=== PATIENT | male | born 1950 | race Caucasian/White ===

== ENCOUNTER 2019-03-22 00:37 | Outpatient (CLI) | payer BC, MEDICARE, SELFPAY ==
[2019-03-22] MEDS: Omnipaque 350 MG/ML 100 ML BTL IJ (13:49)
--- NOTE | 2019-03-22 13:55 | DI.CT_ITS ---
EXAM: CT THORAX CTA CLINICAL HISTORY: SEE ECHO, 3.8CM AORTIC DILATATION, DILATED AORTIC ROOT, THORACIC AORTIC ECTASIA, I 77.810 TECHNIQUE: Imaging Protocol: Axial CT angiography was performed with multislice acquisition and mul tiplanar and/or 3D reconstructions. CONTRAST MATERIAL: Intravenous: Omnipaque 350 Contrast volume:100 mL contrast route:IV - Oral:No COMPARISON: No exams were available for comparison FINDINGS: Pulmonary Arteries: No evidence of filling defect to suggest pulmonary emboli. Tracheobronchial tree: Patent where visualized. Mediastinum and Soraya: No dominant adenopathy or fluid collection. Pulmonary parenchyma: No scarring or atelectasis in the lung bases bilaterally. No focal consolidati ng infiltrates are seen. Pleura: No effusion or pneumothorax. Heart/Aorta: Atherosclerosis. Maximum diameter of the ascending aorta is 3.7 centimeters. The heart is not dilated. Coronary artery calcifications. No significant pericardial effusion. Upper abdomen: 3.8 centimeter left renal cyst. Bones: Degenerative changes in the spine IMPRESSION: Ascending thoracic aorta measuring up to 3.7 centimeters in diameter. DATA REPOSITORY: All CT scans at this facility are submitted to the National Radiology Data Registry (NRDR) Dose Index Registry (DIR) with the [employer] (A[employer]). RADIATION OPTIMIZATION: All CT scans at this facility use at least one of these dose optimization te chniques: automated exposure control; mA and/or kV adjustment per patient size (includes targeted exa ms where dose is matched to clinical indication); or iterative reconstruction.
== END 2019-03-22 00:57 ==
PROVIDERS: PCP Family Medicine; Visit Provider Family Medicine
DX: I77.810 Thoracic aortic ectasia (principal)
CPT/HCPCS: 71275; J3490

== ENCOUNTER 2019-04-02 09:06 | Day surgery (SDC) | payer BC, MEDICARE, SELFPAY ==
--- NOTE | 2019-04-02 06:51 | ENDO_ITS ---
Date of service: 04/02/19 Time of Service: 10:55 Endoscopy Report DATE OF PROCEDURE: 04/02/19 PRE-OP DIAGNOSIS: Dysphagia POST-OP DIAGNOSIS: other (Erosive esophagitis, gastritis) PROCEDURE: EGD with biopsies SURGEON: Veronique Fletcher ANESTHESIA: other (General/ ASA 2/Lilo Vicente, PATTIE) ESTIMATED BLOOD LOSS: 3 PATHOLOGY: other (Gastric bx, GE junction bx, esophageal bx at 35 cm) COMPLICATIONS: None DISPOSITION: same day INDICATIONS: Mr. Raygoza is a pleasant 68-year-old gentleman with a history of reflux on ranitidine daily who comes in today to discuss a possible upper endoscopy. He has had symptoms of dysphasia on and off for about 20 years. He states he normally feels it when he is eating too fast or if he is eating something very spicy. He is never had an upper endoscopy before. He denies any weight loss, nausea, vomiting. His past medical history is significant for an MN in September 2017. At that time he had 2 stents placed. He sees cardiology regularly in [place] and his last echocardiogram was December of this year and per the patient was stable. He did have a CT scan done here at [facility] which showed a dilated a sending aorta at 3.8 cm stable from the echo. He has not had to use his nitro for a long time. He does also have COPD. Current symptoms: Reports dysphagia Prior treatment: H2 blockers Risks, benefits and complications have been reviewed. Complications include but are not limited to bleeding, pain, perforation, sore throat, aspiration, and adverse reaction to the medications. Questions were entertained and answered to their satisfaction and they wished to proceed. No guarantees were given or implied. FINDINGS: Mild to moderate gastritis Erosive esophagitis PROCEDURE DESCRIPTION: After informed consent was obtained the patient was take to the procedure room and placed in a supine position. Monitors were applied and a time out was done. The patients name, date of , procedure type, allergies to medications and metal in their body was reviewed. A bite block was placed and the patient was sedated. Once sedated and comfortable the gastroscope was advanced through the oropharynx which was grossly normal into the esophagus. The proximal and mid- esophagus were normal. In the distal esophagus there was inflammation and denudation of esophageal mucosa from 40 to 35 cm noted. The scope was advanced into the stomach and through the pylorus into the 3rd portion of the duodenum. The duodenum was noted to be normal. The scope was retracted back into the stomach. There was mild to moderate gastritis of the antrum and body and biopsies were done to rule out H. pylori. There were no ulcers. The scope was retro-flexed. The cardia and fundus were noted to be normal. There was no hiatal hernia noted. The scope was retracted back into the esophagus. The Z line was irregular with inflammation. The GE junction was at 40 cm. There were areas that looked like the mucosa was denuded from 40 up to 35 cm. It was in strips. Bx were done at the GE junction and at 35 cm. No masses were noted. There was normal appearing peristalsis while I was doing the EGD. The scope was removed and the patient was woken up and taken back to [facility] in stable condition. Follow up: 3 weeks. Start Omeprazole 40 mg daily. Stop Ranitidine.
--- NOTE | 2019-04-02 06:53 | W.PM.DSUDISC ---
Discharge Plan Disposition Patient Disposition: HOME Condition: Good Discharge Details Reason For Visit: Dysphagia Attending Provider: Veronique Fletcher Primary Care Provider: Jesusita Ruiz Home Meds and New Rx's Prescriptions: New omeprazole 40 mg capsule,delayed release(DR/EC) 40 mg PO DAILY Qty: 30 RF: 1 Continued atorvastatin 80 mg tablet 80 mg PO DAILY Qty: 90 RF: 11 Januvia 100 mg tablet 100 mg PO DAILY Qty: 90 RF: 12 metformin [Glucophage] 1,000 mg tablet See Rx Instructions PO BID RF: 0 metoprolol succinate 25 mg tablet extended release 24 hr 25 mg PO DAILY Qty: 90 RF: 5 Jardiance 10 mg tablet 10 mg PO QAM Qty: 90 RF: 4 aspirin [Adult Aspirin Regimen] 81 mg tablet,delayed release (DR/EC) 81 mg PO DAILY RF: 0 cetirizine 10 MG tablet 1 tab PO BID RF: 0 (DME) lancets [OneTouch Delica Lancets] 1 EACH misc 1 unit Sub-Q DAILY RF: 0 (DME) lancets 1 EACH misc 1 unit Intradermal DAILY RF: 0 epinephrine [EpiPen 2-Justice] 0.3 MG/0.3 ML auto-injector 0.3 mg IM PRN Qty: 2 RF: 12 multivitamin [Daily Multiple] 1 EACH tablet 1 tab PO DAILY RF: 0 cholecalciferol (vitamin D3) [Vitamin D3] 2,000 UNIT capsule 2,000 unit PO DAILY RF: 0 albuterol sulfate [ProAir HFA] 8.5 GM HFA aerosol inhaler 1 - 2 puff Inhalation Q4H PRN Qty: 3 RF: 12 nitroglycerin 0.4 MG tablet, sublingual 0.4 mg Sublingual PRN MDD 3 Qty: 25 RF: 11 chlorthalidone 25 mg tablet 25 mg PO DAILY Qty: 90 RF: 12 potassium chloride 20 mEq tablet extended release 20 meq PO DAILY Qty: 90 RF: 12 (DME) HealthLok Ultra Test strip 1 strip Miscellaneous DAILY Qty: 100 RF: 12 Incruse Ellipta 62.5 mcg/actuation blister with device 1 inh IH DAILY Qty: 90 RF: 4 Discontinued ranitidine HCl [Zantac Maximum Strength] 150 mg tablet 150 mg PO BID Qty: 180 RF: 4 Discharge Instructions Additional Instructions: Findings: Gastritis and esophagitis Follow up: 3 weeks in the office Medication: Stop Ranitidine Start Omeprazole Please call if you develop: fevers >101.5 Nausea or Vomiting Abdominal pain that is not transient DAY SURGERY UNIT POST ENDOSCOPY INSTRUCTIONS 1. Because there will be medication in your system for the next 24 hours, you may feel a little sleepy. Your coordination will be affected. Therefore: a. Do not drive or operate dangerous equipment for 24 hours. b. Do not drink alcohol beverages for 24 hours (not even beer). c. Plan to go home and rest for the day. 2. Generally there are no restrictions on your activity after a day or so has gone by, but you may feel a bit fatigued for a few days. 3 After you arrive home you may have a light meal and return to a normal diet as you can tolerate it without feeling sick to your stomach. 4. After surgery, you may feel pain or discomfort. This should be only transient, but if it persists please contact your doctor. 5. If there are any questions regarding the findings of your procedure, please feel free to contact your doctor. 6. If you are unable to contact your doctor with a problem, contact the hospital at [phone]. 7. Continue all your regular medications unless directed otherwise. I understand the above instructions and have no questions. Signature of Patient or Responsible Adult Escort Date/Time Name of Responsible Adult Escort Signature of Nurse Date/Time Referrals: Veronique Fletcher MD [ [facility] STAFF PHYSICIAN] - 04/20/19 9:00 am Activity:: Activity as Tolerated Diet:: As Tolerated Discharge Orders Discharge Orders: Discharge Order (Routine); Ordered 04/02/19 Ordered By: Veronique Fletcher DS: Diagnosis Discharge Diagnosis (1) Gastritis: Status: Acute (2) Esophagitis determined by endoscopy: Status: Acute
[2019-04-02 09:24] VITALS: BP 126/84; PULSE 83; RESP 16; TEMP 36.7; O2SAT 92
[2019-04-02] MEDS: Lactated Ringers 1,000 ML 80 ML IV (09:56)
--- NOTE | 2019-04-02 10:44 | STOM_PTH ---
PATIENT: Phillip Raygoza LOC: [facility] U#:[id number] AGE/SX: 68/M ROOM: RE04/02/[address]: Veronique Fletcher MD : [id number] BED: DIS: 04/02/2019 SPEC #: [id number] RECD: 04/02/19 12:49 STATUS: JOE REQ #: [id number] CONSTANZA: 04/02/19 10:[address]: Veronique Fletcher DEPT: Surgical Specimen RECD BY: Marilin Pimentel ENTERED: 04/02/19 12:50 SP TYPE: STOMACH OTHR DR: Jesusita Ruiz MD, DC Tissues: 1 - STOMACH BIOPSY 2 - ESOPHAGUS BIOPSY 3 - ESOPHAGUS BIOPSY Procedures: GROSS AND MICRO LEVEL 4 Comments: [id number]
[2019-04-02 11:31] VITALS: BP 128/81; PULSE 80; RESP 16; TEMP 36.7; O2SAT 92
== END 2019-04-02 11:40 | disposition home or self-care (01) ==
LOC: SUR 09:06
PROVIDERS: PCP Family Medicine; Visit Provider Surgery
PROC: 0DJ68ZZ Inspection of Stomach, Via Natural or Artificial Opening Endoscopic (ICD-10-PCS; CPT 43235; principal; 2019-04-02 10:30)
DX: R13.10 Dysphagia, unspecified (principal); K21.0 Gastro-esophageal reflux disease with esophagitis; K22.9 Disease of esophagus, unspecified; K29.70 Gastritis, unspecified, without bleeding; E11.9 Type 2 diabetes mellitus without complications; Z79.84 Long term (current) use of oral hypoglycemic drugs; J44.9 Chronic obstructive pulmonary disease, unspecified
CPT/HCPCS: 43239; 88305; J2001; J2704

== ENCOUNTER 2020-03-25 18:36 | Emergency (ER) | payer BC, MEDICARE, SELFPAY ==
[2020-03-25 18:43] VITALS: PULSE 95; RESP 16; TEMP 36.9; O2SAT 95
--- NOTE | 2020-03-25 18:54 | ED.GENADUL_ITS ---
Discharge Plan Disposition Patient Disposition: HOME Condition: Stable Discharge Details Clinical Impression: Renal cyst, Hemorrhoids, BRBPR (bright red blood per rectum), Abdominal discomfort Primary Care Provider: Jesusita Ruiz ED Provider: Lenore Darling Home Meds and New Rx's Prescriptions: Continued prednisone 20 mg tablet 40 mg PO DAILY PRN (Reason: Allergy Symptoms) RF: 0 famotidine 40 mg tablet 40 mg PO BID Qty: 180 RF: 6 polyethylene glycol 3350 17 gram/dose powder 17 gm PO DAILY PRN (Reason: constipation) Qty: 510 RF: 5 (DME) pen needle, diabetic [BD Ultra-Fine Short Pen Needle] 31 gauge x 5/16 needle See Rx Instructions .ROUTE .MEDSUPPLY Qty: 90 RF: 6 (DME) blood sugar diagnostic Strip 1 strip Miscellaneous DAILY Qty: 400 RF: 12 aspirin [Adult Aspirin Regimen] 81 mg tablet,delayed release (DR/EC) 81 mg PO DAILY RF: 0 Januvia 100 mg tablet 100 mg PO DAILY Qty: 90 RF: 12 potassium chloride 20 mEq tablet extended release 20 meq PO DAILY Qty: 90 RF: 12 chlorthalidone 25 mg tablet 25 mg PO DAILY Qty: 90 RF: 12 atorvastatin 80 mg tablet 80 mg PO DAILY Qty: 90 RF: 11 cetirizine 10 MG tablet 1 tab PO BID RF: 0 (DME) lancets [OneTouch Delica Lancets] 1 EACH misc 1 unit Sub-Q DAILY RF: 0 (DME) lancets 1 EACH misc 1 unit Intradermal DAILY RF: 0 multivitamin [Daily Multiple] 1 EACH tablet 1 tab PO DAILY RF: 0 cholecalciferol (vitamin D3) [Vitamin D3] 2,000 UNIT capsule 2,000 unit PO DAILY RF: 0 albuterol sulfate [ProAir HFA] 8.5 GM HFA aerosol inhaler 1 - 2 puff Inhalation Q4H PRN Qty: 3 RF: 12 nitroglycerin 0.4 MG tablet, sublingual 0.4 mg Sublingual PRN MDD 3 Qty: 25 RF: 11 empagliflozin 25 mg tablet 25 mg PO QAM Qty: 90 RF: 4 metformin [Glucophage] 1,000 mg tablet See Rx Instructions PO BID Qty: 225 RF: 6 Lantus Solostar U-100 Insulin 100 unit/mL (3 mL) insulin pen 28 unit SC DAILY Qty: 45 RF: 6 metoprolol succinate 25 mg tablet extended release 24 hr 25 mg PO DAILY Qty: 90 RF: 5 Incruse Ellipta 62.5 mcg/actuation blister with device 1 inh IH DAILY Qty: 90 RF: 4 fluticasone propion-salmeterol [Advair Diskus] 500-50 mcg/dose blister with device 1 inh inhalation BID Qty: 180 RF: 5 epinephrine [EpiPen 2-Justice] 0.3 mg/0.3 mL auto-injector 0.3 mg IM PRN Qty: 2 RF: 0 Discharge Instructions Instructions: Hemorrhoids (ED) Additional Instructions: Your imaging and labs are reassuring today. You were noted to have a renal cyst as we discussed. You have bleeding noted from your rectum, this is likely associate with hemorrhoid that was visualized on exam. Encourage water intake. Please try to keep your stools soft but not overly frequent abdominal you avoid both straining and excessive wiping to allow this area to heal. The bleeding is likely coming from your hemorrhoid. I would like for you to follow-up with general surgery. Please call number listed below the month schedule follow-up appointment. YOu will need follow up of your renal cyst in 6 months from primary care. Please also contact your primary care tomorrow to schedule follow-up appointment in the next 1 to 2 weeks for reevaluation and discuss your chronic abdominal discomfort. Referrals: Jesusita Ruiz MD, [place] [Primary Care Provider] - Suzanne Nash MD [ [facility] STAFF PHYSICIAN] - Discharge Data Discharge Date/Time-TO BE ENTERED AT DEPARTURE: 03/25/20 23:19 Medical Decision Making Patient is a pleasant 69 year old male with PMH sgnificant for DM, BPH, COPD, diverticulitis, esophagitis, HTN, gastritis, hemorrhoids, IA, TIA. [facility] with c/c of abdominal discomfort and BRBPR. He state sthtat he has chronic abdoinal pain that has been rpresent for several years. He has had endoscopy which revealed esophagitis as well as colonoscopy which was without abnormality. He states that he noted some heaviness in his lower abdomen which is new today. Abdominal pain otherwise chronic. He states that he had one episode of nausea/vomiting after eating [place] food a few days ago but none since then. Reports that today he noted bright red blood in the toilet. Denies this being intermixed with stool. States it was a few drops after his BM in the toilet. States he later noted blood in his underwear. No change in urinary habits. No bleeding elsewhere. Hx of hemohrroids. On exam, patient appears slightly anxious but nontoxic. He has a benign abdomen. Lungs are clear. He has small amount of bright red blood around his rectum as well as a nonthrombosed hemorrhoid. Nomral rectal tone. He states that he has chronic SOB and occasional CP. Will obtain ECG and troponin although ACS is very low on differential. History and exam is most suggestive of bleeding hemorrhoid. I did not see any active bleeding. Hehas a benign abdomen but indicates the entirety of the lower abdomen as his source of heaviness. considered diverticulits as well. Also considered appendicitis although this too seems less likely. will obtain CT and labs. ECG reviewed by physician, no acute ischemic changes noted. Labs reviewed, no acute changes noted. roponin <0.05. I do not feel repeat is necessary based on longevity of symptos. FINDINGS: Liver: Normal. No mass. Gallbladder and bile ducts: Normal. No calcified stones. No ductal dilation. Pancreas: Normal. No ductal dilation. Spleen: Normal. No splenomegaly. Adrenal glands: Normal. No mass. Kidneys and ureters: Mildly complex left renal cyst. Stomach and bowel: Scattered colonic diverticula. Appendix: No evidence of appendicitis. Intraperitoneal space: Unremarkable. No free air. No significant fluid collection. Vasculature: Unremarkable. No abdominal aortic aneurysm. Lymph nodes: Unremarkable. No enlarged lymph nodes. Urinary bladder: Question minimal mural thickening of the incompletely distended urinary bladder, recommend clinical exclusion of urinary cystitis. Reproductive: Unremarkable as visualized. Bones/joints: Unremarkable. No acute fracture. Soft tissues: Unremarkable. IMPRESSION: 1. No acute finding. 2. Question minimal mural thickening of the incompletely distended urinary bladder, recommend clinical exclusion of urinary cystitis. 3. Mildly complex left renal cyst. Recommend CT without and with contrast or MR without and with contrast at 6 months and 12 months, then yearly for 5 years. Discussed this finding wit the aptetient. Will obtain UA. Denies dysurea, frequency or urgency. No CVA tenderness. He will f/u with PCP regarding cyst and repeat imaging. He and I discussed care of his hemorrhoid. He is not anemic, has been stable while here, no evidence of signficant blood loss. We discussed disposition, patient will be d/c'ed home with PCP and general surgery f/u. We did discuss his chronic abdominal pain further, discussed if this is linked to stress. It may be. He was given return precautions. UA without evidence of infection. Glucose noted, this is likely medication driven. All of his quetion and cncerns were addressed, he is in agreement with this plan. HPI General Mode of arrival: ambulatory . Date/Time Provider Initiated Documentation: 03/25/20 18:54 . Limitations to Documentation: no limitations . Information obtained by: patient, RN notes reviewed and old records reviewed . History of Present Illness 69 year old M presents to the emergency department with the chief complaint of abdominal discomfort and rectal bleeding, described as moderate and similar to prior episodes (chronic abdominal discomfort and heartburn, rectal bleeding is new. Hx of hemorrhoids), with intensity rated at 6. Quality is described as aching, and is localized to the abdomen. Patient reports no radiation. Patient started experiencing this hour(s) (BRBPR began today. Abdominal discomfort for years, changed recently) and it has been constant. No relieving factors improve symptom(s), No exacerbating factors reported . Patient notes weakness; denies chest pain, cough, fever/chills, loss of appetite, nausea/vomiting, rash and shortness of breath. Patient did receive the following treatments prior to arrival, none Related Data Home Medications Medication Instructions Recorded Confirmed cetirizine 1 tab PO BID 07/25/12 03/25/20 lancets ea 07/25/12 11/13/19 lancets [OneTouch Delica Lancets] ea 07/25/12 11/13/19 cholecalciferol (vitamin D3) 2,000 unit PO DAILY 09/24/14 03/25/20 [Vitamin D3] multivitamin [Daily Multiple] 1 tab PO DAILY 09/24/14 03/25/20 albuterol sulfate [ProAir HFA] 1 - 2 puff INHALATION Q4H PRN #3 05/12/15 03/25/20 inhaler nitroglycerin 0.4 mg SUBLINGUAL PRN #25 tab-cap 10/04/17 03/25/20 MDD 3 aspirin 81 mg tablet,delayed 81 mg PO DAILY 03/27/19 03/25/20 release atorvastatin 80 mg tablet 80 mg PO DAILY #90 tab-cap 04/05/19 03/25/20 chlorthalidone 25 mg tablet 25 mg PO DAILY #90 tab 04/05/19 03/25/20 potassium chloride 20 mEq 20 meq PO DAILY #90 tab 04/05/19 03/25/20 tablet,extended release sitagliptin 100 mg tablet 100 mg PO DAILY #90 tab-cap 04/05/19 03/25/20 empagliflozin 25 mg tablet 25 mg PO QAM #90 tab 06/19/19 03/25/20 metformin 1,000 mg tablet See Rx Instructions PO BID #225 tab 06/19/19 03/25/20 blood sugar diagnostic #400 strip 07/26/19 11/13/19 famotidine 40 mg tablet 40 mg PO BID #180 tab 07/26/19 03/25/20 pen needle, diabetic 31 gauge x #90 each 07/26/19 11/13/19/ polyethylene glycol 3350 17 17 gm PO DAILY PRN #510 gm 07/26/19 03/25/20 gram/dose oral powder insulin glargine 100 unit/mL (3 28 unit SC DAILY #45 ml 10/09/19 03/25/20 mL) subcutaneous pen prednisone 20 mg tablet 40 mg PO DAILY PRN tab 11/13/19 03/25/20 metoprolol succinate 25 mg 25 mg PO DAILY #90 tab 12/04/19 03/25/20 tablet,extended release 24 hr umeclidinium 62.5 mcg/actuation 1 inh IH DAILY #90 each 12/04/19 03/25/20 blister powder for inhalation fluticasone 500 mcg-salmeterol 50 1 inh INHALATION BID #180 ea 12/23/19 03/25/20 mcg/dose blistr powdr for inhalation epinephrine 0.3 mg/0.3 mL 0.3 mg IM PRN #2 ea 03/17/20 03/25/20 injection, auto-injector Previous Rx's Medication Instructions Recorded nitroglycerin 0.4 mg SUBLINGUAL PRN #25 tab-cap 10/04/17 MDD 3 atorvastatin 80 mg tablet 80 mg PO DAILY #90 tab-cap 04/05/19 chlorthalidone 25 mg tablet 25 mg PO DAILY #90 tab 04/05/19 potassium chloride 20 mEq 20 meq PO DAILY #90 tab 04/05/19 tablet,extended release sitagliptin 100 mg tablet 100 mg PO DAILY #90 tab-cap 04/05/19 empagliflozin 25 mg tablet 25 mg PO QAM #90 tab 06/19/19 metformin 1,000 mg tablet See Rx Instructions PO BID #225 tab 06/19/19 blood sugar diagnostic #400 strip 07/26/19 famotidine 40 mg tablet 40 mg PO BID #180 tab 07/26/19 pen needle, diabetic 31 gauge x #90 each 07/26/1908/10 polyethylene glycol 3350 17 17 gm PO DAILY PRN #510 gm 07/26/19 gram/dose oral powder insulin glargine 100 unit/mL (3 28 unit SC DAILY #45 ml 10/09/19 mL) subcutaneous pen metoprolol succinate 25 mg 25 mg PO DAILY #90 tab 12/04/19 tablet,extended release 24 hr umeclidinium 62.5 mcg/actuation 1 inh IH DAILY #90 each 12/04/19 blister powder for inhalation fluticasone 500 mcg-salmeterol 50 1 inh INHALATION BID #180 ea 12/23/19 mcg/dose blistr powdr for inhalation epinephrine 0.3 mg/0.3 mL 0.3 mg IM PRN #2 ea 03/17/20 injection, auto-injector Allergies Allergy/AdvReac Type Severity Reaction Status Date / Time lisinopril Allergy Intermediate SWELLING Unverified 03/25/20 18:48 General Stated Complaint: GI Bleed FERNY: 3 Review of Systems Constitutional Constitutional: Reports as per HPI, Denies chills, Denies fatigue, Denies fever(s) and Denies headache(s) ENT Ears, Nose, Mouth, and Throat: Denies headache(s) Cardiovascular Cardiovascular: Reports as per HPI, Denies chest pain and Denies dyspnea Respiratory Respiratory: Reports as per HPI, Denies cough and Denies dyspnea Gastrointestinal Gastrointestinal: Reports as per HPI Genitourinary Genitourinary: Denies system reviewed and no additional complaints, except as documented (patient denies any change in urinary habits), Denies hematuria, Denies genital pain and Denies dysuria Musculoskeletal Musculoskeletal: Reports as per HPI and Denies back pain Integumentary/Breasts Skin/Breast: Reports as per HPI and Denies rash Neurologic Neurologic: Reports as per HPI and Denies headache(s) Endocrine Endocrine: Denies fatigue [facility] Medical History (Updated 03/25/20 @ 22:59 by TYRON Anthony) Benign prostatic hyperplasia normal PSA Chest pain negative stress test and neg. 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 MRI of brain neg. Diverticulosis of colon without diverticulitis DM (diabetes mellitus) Elev transaminase/LDH Esophagitis determined by endoscopy mild Essential hypertension (03/16/13) Gastritis negative H. Pylori Hemorrhoids Hypokalemia (01/21/14) Low back pain (02/24/95) 1995 BACK INJURY, DISABLED, L4-5 DISK HERNIATION Major depression, single episode DAUGHTER COMMITED SUICIDE; PSYCHE ADMISS[place] [facility] [place] Memory difficulty (01/09/15) Myocardial infarct September 2017 Neck pain (09/24/14) Shoulder pain RECURRENT RIGHT Smoker Transient cerebral ischemia (07/21/17) Tubular adenoma 07/04 COLONOSCOPY: TUBULAR ADENOMA 10/27/11 COLONOSCOPY; 1 TUBULAR ADENOMA Type 2 diabetes mellitus Urticaria Chronic; W/U at [facility] [place] 2006; recommended antihistamines and epi if necessary Vitamin D deficiency (05/02/12) Surgical History Colonoscopy - MAC (09/09/17) 2008- Tubular adenoma 2011- Tubular adenoma Stented coronary artery 2 stents placed 09/2017 Family History Mother , 86 Diabetes Essential hypertension CHF (congestive heart failure) Father , 95 Diabetes Essential hypertension Heart disease Myocardial infarction Brother No problems noted. Son No problems noted. Son Asthma Daughter , 19 No problems noted. Maternal Grandfather , 65 No problems noted. Paternal Grandfather No problems noted. Maternal Grandmother , 84 No problems noted. Paternal Grandmother No problems noted. Social History Smoking/Tobacco Use Status: Former Tobacco Use Second Hand Exposure: Yes Smoking risk assessment performed?: Yes Alcohol Intake: current Alcohol Intake frequency: a few times a month Alcohol type: hard liquor Drug use: Never Substance use type: does not use Household members: spouse Housing: house Communication Needs: Corrective Lenses Pets and animals: No Sexually active: Yes Do you think of yourself as: straight/heterosexual Current gender identity: male What is your relationship status?: How often do you talk on the phone with friends or family?: three or more times per week How often do you get together with friends or relatives?: twice per week How often do you attend rastafarian or mandaen services?: decline to answer Do you belong to any clubs or organized social groups?: decline to answer Panel score (0-1 are the most socially isolated patients): 2 What type of physical activity do you participate in: walking Duration: 30-45 minutes/day Frequency: 5-6 times per week Magi/Shinto: Special magi needs: No Seatbelt use: always Helmet use: No Drive intox or ride w/intox sprinkler driver: No Do you feel safe at home: Yes Do you feel safe in your relationship?: Yes Exam Const General: cooperative, healthy appearing, comfortable, no acute distress and well developed Nutritional Appearance: average body habitus and well nourished Orientation: alert and awake HENMT Head: normal to inspection Mouth: moist mucous membranes Resp Effort & Inspection: normal respiratory effort, able to speak in complete sentences and no respiratory distress Auscultation: clear to auscultation bilaterally, no rales, no rhonchi and no wheezes Cardio Rate: regular rate Rhythm: regular rhythm Heart Sounds: S1 normal and S2 normal GI Inspection: normal to inspection, no abdominal wall ecchymosis, non-distended and no visible herniation Palpation: soft, no hepatosplenomegaly, no guarding, no hernias, no pulsatile masses, nontender and No ascites Percussion: normal to percussion Auscultation: normal bowel sounds Rectal Exam: visual inspection normal (hemorrhoid noted, small amount of blood ), normal sphincter tone, prostate normal, heme positive stool (BRBPR) and No tenderness Back/Spine/Pelvis Back: no CVA tenderness Skin General skin exam: no rashes or lesions noted Trauma: no lacerations or abrasions Neuro General: patient alert and patient awake Cognition: normal cognition Speech: speech normal Gait: normal gait Psych Appearance: grossly normal and well kempt Mental Status: mental status grossly normal Speech and Movement: speech and movement normal Course Vital Signs Vital signs: Vital Signs Temperature 36.9 C 03/25/20 18:43 Pulse 95 H 03/25/20 18:43 Respiratory Rate 16 03/25/20 18:43 Pulse Oximetry 95 03/25/20 18:43 Temperature 36.9 C 03/25/20 18:43 Temperature Source Skin 03/25/20 18:43 Pulse 95 H 03/25/20 18:43 Respiratory Rate 16 03/25/20 18:43 Respiratory Effort Non-Labored 03/25/20 18:47 Blood Pressure Position Sitting 03/25/20 18:43 Pulse Oximetry 95 03/25/20 18:43 Oxygen Delivery Method Room Air 03/25/20 18:43 Oxygen Flow Rate 0 03/25/20 18:43 Pain Level 6 03/25/20 18:47
--- NOTE | 2020-03-25 19:15 | DI.CT_ITS ---
EXAM: CT ABDOMEN PELVIS W CLINICAL HISTORY: lower abdominal pain, BRBPR TECHNIQUE: COMPARISON: CT CT THORAX CTA from 03/22/2019 FINDINGS: CT examination of the abdomen and pelvis was performed with bolus infusion of 100 cc of Omnipaque 350 . Images obtained through the lung bases are unremarkable. Note is made of coronary artery calcifica tion. The liver appears normal with no evidence of a focal mass. Spleen is unremarkable in appearance.. Gallbladder and bile ducts are unremarkable. Pancreas is unremarkable in appearance. Adrenals appear normal bilaterally. There is no evidence of hydronephrosis or nephrolithiasis. There is an apparent pelvic cyst of the l eft kidney, there is also a 4 cm in diameter predominantly cystic lesion of the left renal cortex sup eriorly, this appears to contain internal septations of indeterminate thickness, correlation with benjamin al protocol MR suggested for characterisation. There is no evidence of abdominal or pelvic adenopathy. Abdominal aorta is of normal diameter and no major vascular abnormality is seen. Appendix is not specifically identified but there is no evidence of appendicitis.. No evidence diver ticulitis or bowel obstruction. No significant abdominal wall hernia seen. Impression: No evidence of acute process. There is an incidental finding of an indeterminate left renal mass, pr obably predominantly cystic. Correlation with renal protocol MRI recommended. RADIATION DOSE DELIVERED: 992.3mGy.cm Total DLP 992.3mGy.cm Total DLP DATA REPOSITORY: All CT scans at this facility are submitted to the National Radiology Data Registry (NRDR) Dose Index Registry (DIR) with the [employer] ([employer]). RADIATION OPTIMIZATION: All CT scans at this facility use at least one of these dose optimization te chniques: automated exposure control; mA and/or kV adjustment per patient size (includes targeted exa ms where dose is matched to clinical indication); or iterative reconstruction.
--- NOTE | 2020-03-25 19:15 | RT.EKG_ITS ---
APPROVED REPORT Exam: Resting ECG Patient Location: E HR:85 bpm ECG Measurements Heart Rate 85 AXIS FL 179 P 56 QRSd 95 QRS -31 QT 381 T 60 QTc 453 Conclusion Sinus rhythm...normal P axis, V-rate 60- 99 Left axis deviation...QRS axis (-30,-90) I have reviewed and interpreted ECG and agree with software generated interpretation.
[2020-03-25 19:32] LABS: Abs Immature Grans 0.09 10^3/uL (0.0-0.06); Absolute Basophil Count 0.02 10^3/uL (0.0-0.2); Absolute Eosinophil Count 0.27 10^3/uL (0.0-0.7); Absolute Lymphocyte Count 1.36 10^3/uL (1.2-3.4); Absolute Monocyte Count 1.32 10^3/uL (0.1-0.8); Absolute Neutrophil Count 6.26 10^3/uL (1.2-6.7); Basophils % 0.2; Eosinophils % 2.9; HCT 47.9 % (40.0-50.0); HGB 17.2 g/dL (13.5-17.5); Lymphocytes % 14.6; MCH 32.8 pg (27.0-33.0); MCHC 35.9 % (32.0-36.0); MCV 91.4 fL (80-95); MPV 9.5 fL (8.0-11.0); Monocytes % 14.2; Neutrophils % 67.1; Nucleated RBC 0 %; Platelet Count 288 10^3/uL (130-400); RBC 5.24 10^6/uL (4.36-5.78); RDW 12.1 % (11.8-14.1); RDW-SD 40.1 fL; WBC 9.32 10^3/uL (4.4-10.8)
[2020-03-25 19:48] LABS: ALT 34 U/L (16-63); AST 21 U/L (15-37); Albumin 4.3 g/dL (3.4-5.0); Alkaline Phosphatase 126 U/L (46-116); Anion Gap 8.2 mmol/L (3-11); BUN 20 mg/dL (7-18); Bilirubin, Total 0.7 mg/dL (0.2-1.0); CO2 30.8 mmol/L (21.0-32.0); CREATININE 0.92 mg/dL (0.70-1.30); Calcium 9.9 mg/dL (8.5-10.1); Chloride 99 mmol/L (98-107); Glucose 128 mg/dL (74-106); Lipase 84 U/L (73-393); Magnesium 1.8 mg/dL (1.8-2.4); Potassium 3.5 mmol/L (3.5-5.1); Sodium 138 mmol/L (136-145); Total Protein 8.3 g/dL (6.4-8.2)
[2020-03-25] MEDS: Normal Saline 1,000 ML 125 ML IV (19:50)
[2020-03-25 19:58] LABS: Troponin I < 0.05 ng/mL (<0.06)
[2020-03-25] MEDS: Omnipaque 350 MG/ML 100 ML BTL IV (21:32)
[2020-03-25] MEDS: Normal Saline - Diluent 50 ML VIAL IV (21:33)
[2020-03-25] MEDS: Normal Saline Flush 10 ML SYR IVP (21:34)
[2020-03-25 21:36] VITALS: BP 136/69; PULSE 80; O2SAT 95
[2020-03-25 22:00] VITALS: PULSE 89; O2SAT 96
--- NOTE | 2020-03-25 22:00 | DI.VRAD_ITS ---
PROCEDURE INFORMATION: Exam: CT Abdomen And Pelvis With Contrast Exam date and time: 03/25/2020 9:28 PM Age: 69 years old Clinical indication: Other: Lower abdominal pain, brbpr TECHNIQUE: Imaging protocol: Computed tomography of the abdomen and pelvis with intravenous contrast. Radiation optimization: All CT scans at this facility use at least one of these dose optimization techniques: automated exposure control; mA and/or kV adjustment per patient size (includes targeted exams where dose is matched to clinical indication); or iterative reconstruction. Contrast material: OMNIPAQUE 350; Contrast volume: 100 ml; Contrast route: INTRAVENOUS (IV); Other contrast: lower abdominal pain, brbpr; COMPARISON: US AAA SCREENING 07/26/2017 11:44 AM FINDINGS: Liver: Normal. No mass. Gallbladder and bile ducts: Normal. No calcified stones. No ductal dilation. Pancreas: Normal. No ductal dilation. Spleen: Normal. No splenomegaly. Adrenal glands: Normal. No mass. Kidneys and ureters: Mildly complex left renal cyst. Stomach and bowel: Scattered colonic diverticula. Appendix: No evidence of appendicitis. Intraperitoneal space: Unremarkable. No free air. No significant fluid collection. Vasculature: Unremarkable. No abdominal aortic aneurysm. Lymph nodes: Unremarkable. No enlarged lymph nodes. Urinary bladder: Question minimal mural thickening of the incompletely distended urinary bladder, recommend clinical exclusion of urinary cystitis. Reproductive: Unremarkable as visualized. Bones/joints: Unremarkable. No acute fracture. Soft tissues: Unremarkable. IMPRESSION: 1. No acute finding. 2. Question minimal mural thickening of the incompletely distended urinary bladder, recommend clinical exclusion of urinary cystitis. 3. Mildly complex left renal cyst. Recommend CT without and with contrast or MR without and with contrast at 6 months and 12 months, then yearly for 5 years. Dictated and Authenticated by: Abundio Gray MD. Ordering:JULIO C Grover MD
[2020-03-25 22:02] VITALS: BP 159/87; PULSE 83; O2SAT 96
[2020-03-25 22:25] LABS: Bilirubin Negative (Negative); Blood Negative (Negative); Clarity Clear (Clear); Glucose >=1000 mg/dL (Negative); Ketones Trace mg/dL (Negative); Leukocyte Esterase Negative (Negative); Nitrite Negative (Negative); Urobilinogen 0.2 EU/dL (Up TO 0.2)
[2020-03-25 22:30] VITALS: O2SAT 96
[2020-03-25 23:09] VITALS: O2SAT 93
--- NOTE | 2020-03-25 23:16 | NUR.NOTE ---
Referral sent to General surgery for follow up on BRBPR. [facility] ED Nursing Note:
== END 2020-03-25 23:19 | disposition home or self-care (01) ==
PROVIDERS: Emergency Provider Physician Assistant; PCP Family Medicine
DX: N28.1 Cyst of kidney, acquired (principal); K62.5 Hemorrhage of anus and rectum; K64.4 Residual hemorrhoidal skin tags; E11.9 Type 2 diabetes mellitus without complications; Z79.4 Long term (current) use of insulin; I10 Essential (primary) hypertension; J44.9 Chronic obstructive pulmonary disease, unspecified; Z87.891 Personal history of nicotine dependence
CPT/HCPCS: 36415; 80053; 83690; 93005; 96360; 96361; 99285; 74177; 81003; 83735; 84484; 85025; 93010; J3490

== ENCOUNTER 2020-04-10 01:46 | Outpatient (CLI) | payer BC, MEDICARE, SELFPAY ==
--- NOTE | 2020-04-10 06:45 | DI.RAD_ITS ---
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 No forei gn body identified. Unremarkable examination of the orbits. Paranasal sinuses appear grossly well a erated as visualized. IMPRESSION: RADIATION DOSE DELIVERED: Total DLP
--- NOTE | 2020-04-10 06:45 | DI.MRI_ITS ---
EXAM: MR ABDOMEN WO/W CLINICAL HISTORY: abnl renal mass,RENAL CYST,N28.1,R93.429. TECHNIQUE: Multiplanar multisequence MRI was performed. COMPARISON: CT CT ABDOMEN PELVIS W from 03/25/2020 FINDINGS: MR examination of the upper abdomen was performed according to the usual protocol multiphasic post co ntrast imaging. Recent CT showed a low-attenuation left renal mass which appeared consistent with multiloculated cyst by CT criteria. MR shows a 46 x 31 millimeter in diameter multiloculated cyst with thin septations. No mural nodule. No enhancement. An additional peripelvic cyst is noted measuring 14 x 13 millimeters in diameter. No solid mass lesion identified in either kidney. No hydronephrosis. Liver and spleen are unremarkable in appearance. Adrenals appear intact. Pancreas appears normal. No biliary dilatation. No adenopathy seen. Unremarkable appearance of the vascular structures. IMPRESSION: Findings consistent with a Class 2 left renal cyst, thin smooth septations are noted without evidence of solid mass, thick septations, or enhancement on post contrast imaging. Follow-up ultrasound exam ination recommended in 12 months. DATA REPOSITORY:
[2020-04-10] MEDS: Gadoterate meglumine 20 ML VIAL 19 ML IVP (10:20)
== END 2020-04-10 02:06 ==
PROVIDERS: PCP Family Medicine; Visit Provider Family Medicine
DX: Z01.89 Encounter for other specified special examinations (principal); N28.1 Cyst of kidney, acquired
CPT/HCPCS: 74183; 70200

== ENCOUNTER 2022-12-09 13:17 | Outpatient (CLI) | payer MEDICARE, SELFPAY ==
[2022-12-09 11:15] LABS: ALT 40 U/L (16-63); AST 28 U/L (15-37); Albumin 3.9 g/dL (3.4-5.0); Alkaline Phosphatase 114 U/L (46-116); Anion Gap 12.7 mmol/L (3-11); BUN 16 mg/dL (7-18); Bilirubin, Total 1.4 mg/dL (0.2-1.0); CO2 24.3 mmol/L (21.0-32.0); CREATININE 0.7 mg/dL (0.70-1.30); Calcium 9.4 mg/dL (8.5-10.1); Calculated LDL 53 mg/dL (<100); Chloride 100 mmol/L (98-107); Cholesterol 135 mg/dL (<200); Estimated GFR 99.12 (mL/min/1.73m2); Glucose 97 mg/dL (74-106); HDL Cholesterol 59 mg/dL (40-60); Potassium 3.7 mmol/L (3.5-5.1); Sodium 137 mmol/L (136-145); Total Protein 7.9 g/dL (6.4-8.2); Triglyceride 115 mg/dL (<150)
[2022-12-09 11:25] LABS: COMMENT (LAB VIEW ONLY) 31.68 mg/dL; Microalb ug/mg Crea 38.2 ug/mg Cr
[2022-12-13 09:41] LABS: Lab Add On Test DONE
[2022-12-13 10:55] LABS: Hemoglobin A1C 5.8 % (<5.7)
== END 2022-12-09 13:18 | disposition home or self-care (01) ==
LOC: LBO 13:24
PROVIDERS: PCP Family Medicine; Visit Provider Family Medicine
DX: I25.10 Atherosclerotic heart disease of native coronary artery without angina pectoris (principal); E11.9 Type 2 diabetes mellitus without complications
CPT/HCPCS: 36415; 80053; 80061; 82043; 82570; 83036

== ENCOUNTER → 2022-12-23 03:30 | Outpatient (CLI) | payer MEDICARE, SELFPAY ==
--- NOTE | 2022-12-23 09:15 | DI.CT_ITS ---
Exam(s) CT ABDOMEN PELVIS W EXAM: CT ABDOMEN PELVIS W CLINICAL HISTORY: continued abd pain, renal cyst, elevated bilirubin.r17,n28.1. TECHNIQUE: Imaging Protocol: Axial computed tomography images with coronal and sagittal reformatted images were created and reviewed CONTRAST MATERIAL: Intravenous: Omnipaque-350 100cc Oral: Yes. Oral contrast was also administered for bowel opacification. COMPARISON: CT CT ABDOMEN PELVIS W from 03/25/2020 FINDINGS: VISUALIZED LUNG BASES: Mild increased markings in the left lower lobe-left lung base.. These are unc hanged from 03/25/2020.. ABDOMEN: There is no ascites. LIVER: There are no focal hepatic lesions evident. No dilated intrahepatic ducts. GALLBLADDER/BILIARY: No obvious gallbladder pathology. CBD is not dilated. PANCREAS: No evidence of pancreatic mass nor dilatation of the pancreatic duct. SPLEEN: Spleen is not enlarged. No obvious intrasplenic lesions. Splenic and portal veins are paten t. ADRENALS: There are no significant adrenal masses. KIDNEYS:Right kidney unremarkable. Previously described partially calcified cyst in left kidney is a gain noted.. This measures 4.5 x 3.7 by 4.2 cm. Has not increased in size from February 2020 almost 3 years. Bosniak type 2 other smaller benign cyst in the medial parapelvic left kidney is unchanged .. No hydronephrosis. ABDOMINAL AORTA: Calcified but not enlarged. LYMPH NODES:There is no retroperitoneal nor paraaortic adenopathy. ABDOMINAL WALL: No evidence of significant anterior abdominal wall nor inguinal hernia. GI: There is no evidence of bowel obstruction, free air, nor abscess. PELVIS: GI: No evidence of appendicitis.No evidence of sigmoid diverticulitis. LYMPH NODES: There is no intrapelvic nor inguinal adenopathy. REPRODUCTIVE: Prostate gland enlarged mildly lobulated. Measures 4.5 cm wide by 4.2 cm wide by 4.5 c m cephalocaudal. Indents the bladder base. Bladder is not distended. URINARY BLADDER: Minimally thickened wall. No masses nor radiopaque calculi noted. OSSEOUS: No fractures and no significant osseous lesions. IMPRESSION: 1. Compared to the prior CT scan of 03/25/2020 the previously described 4.5 x 3.7 x 4.2 cm predominan tly cystic partially calcified septated lesion in the left kidney is unchanged in size and appearance .. This is almost 3 years, and therefore most probably benign. Bosniak type 2. 2. Prostate gland is enlarged. Urinary bladder not distended. 3. Findings as above. RADIATION DOSE DELIVERED: 989.5mGy.cm Total DLP DATA REPOSITORY: All CT scans at this facility are submitted to the National Radiology Data Registry (NRDR) Dose Index Registry (DIR) with the [employer] ([employer]). RADIATION OPTIMIZATION: All CT scans at this facility use at least one of these dose optimization te chniques: automated exposure control; mA and/or kV adjustment per patient size (includes targeted exa ms where dose is matched to clinical indication); or iterative reconstruction.
[2022-12-23] MEDS: Barium Sulfate 2% W/V-Berry Smoothie 450 ML BTL 900 ML PO (12:21)
[2022-12-23] MEDS: Omnipaque 350 MG/ML 100 ML BTL IJ (14:20)
[2022-12-23] MEDS: Normal Saline - Diluent 50 ML VIAL IJ (14:22)
--- NOTE | 2023-07-05 18:45 | DI.RAD_ITS ---
Exam(s) XR CHEST 2V PA LATERAL EXAM: XR CHEST 2V PA LATERAL CLINICAL HISTORY: evaluate pneumonia J44.1. TECHNIQUE: 2D digital imaging was performed. COMPARISON: CR PORTABLE CHEST ONE VIEW from 09/25/[address] ABDOMEN PELVIS W from 12/23/2022 FINDINGS: 2 views: Heart size is normal. The mediastinum is not widened. There is significant infiltrate in the left lung involving the upper lobe and superior lingular segme nt no associated pleural effusion. The opposite-right lung is clear. IMPRESSION: Prominent left lung infiltrate. Follow-up to resolution recommended to rule out malignancy. DATA REPOSITORY: RADIATION DOSE DELIVERED:
--- NOTE | 2023-07-05 19:43 | DI.VRAD_ITS ---
PROCEDURE INFORMATION: Exam: XR Chest Exam date and time: 07/05/2023 7:08 PM Age: 73 years old Clinical indication: Other: Copd exacerbation, evaluate pna TECHNIQUE: Imaging protocol: Radiologic exam of the chest. Views: 2 views. COMPARISON: CT THORAX CTA 03/22/2019 1:51 PM FINDINGS: Lungs: There has developed moderate-sized area of consolidation throughout the left mid lung. Right lung appears clear. Pleural spaces: Unremarkable. No pleural effusion. No pneumothorax. Heart/Mediastinum: Unremarkable. No cardiomegaly. Vasculature: Moderate atherosclerotic calcification. Bones/joints: Mild degenerative changes of the spine. IMPRESSION: Moderate findings of the left mid lung pneumonia Dictated and Authenticated by: Vic Gonzalez MD. Ordering:NEDA Jackson MD
== END ==
PROVIDERS: PCP Family Medicine; Visit Provider Family Medicine
DX: N28.1 Cyst of kidney, acquired (principal); R10.9 Unspecified abdominal pain
CPT/HCPCS: 74177; J3490

== ENCOUNTER 2023-06-02 03:49 | Outpatient (CLI) | payer MEDICARE, SELFPAY ==
[2023-06-02 12:54] LABS: ALT 29 U/L (16-63); AST 20 U/L (15-37); Albumin 3.9 g/dL (3.4-5.0); Alkaline Phosphatase 102 U/L (46-116); Anion Gap 8.8 mmol/L (3-11); BUN 24 mg/dL (7-18); Bilirubin, Total 1.1 mg/dL (0.2-1.0); CO2 29.2 mmol/L (21.0-32.0); Calcium 10.1 mg/dL (8.5-10.1); Calculated LDL 72 mg/dL (<100); Chloride 102 mmol/L (98-107); Cholesterol 152 mg/dL (<200); Estimated GFR 80.97 (mL/min/1.73m2); Glucose 143 mg/dL (74-106); HDL Cholesterol 68 mg/dL (40-60); Potassium 3.9 mmol/L (3.5-5.1); Sodium 140 mmol/L (136-145); Total Protein 7.7 g/dL (6.4-8.2); Triglyceride 64 mg/dL (<150)
[2023-06-02 14:16] LABS: Hemoglobin A1C 6.9 % (<5.7)
[2023-06-02 22:39] LABS: PSA, Diagnostic 2.1 ng/mL (<=6.5)
== END 2023-06-02 03:50 | disposition home or self-care (01) ==
LOC: LOS 03:50
PROVIDERS: PCP Family Medicine; Visit Provider Family Medicine
DX: I10 Essential (primary) hypertension (principal); E11.9 Type 2 diabetes mellitus without complications; N40.0 Benign prostatic hyperplasia without lower urinary tract symptoms
CPT/HCPCS: 36415; 80053; 80061; 83036; 84153

== ENCOUNTER 2023-06-07 08:36 | Outpatient (CLI) | payer BC, SELFPAY ==
[2023-06-07 12:48] LABS: HCT 49.7 % (40.0-50.0); HGB 17.1 g/dL (13.5-17.5); MCH 32.4 pg (27.0-33.0); MCHC 34.4 % (32.0-36.0); MCV 94 fL (80-95); MPV 10.3 fL (8.0-11.0); Platelet Count 246 10^3/uL (130-400); RBC 5.28 10^6/uL (4.36-5.78); RDW 12.2 % (11.8-14.1); RDW-SD 42.5 fL; WBC 9.51 10^3/uL (4.4-10.8)
[2023-06-07 12:53] LABS: ESR 13 mm/hr (0-20)
[2023-06-07 12:59] LABS: ALT 27 U/L (16-63); AST 18 U/L (15-37); Albumin 3.8 g/dL (3.4-5.0); Alkaline Phosphatase 99 U/L (46-116); Anion Gap 11.8 mmol/L (3-11); BUN 21 mg/dL (7-18); Bilirubin, Total 1.1 mg/dL (0.2-1.0); CO2 28.2 mmol/L (21.0-32.0); CREATININE 0.9 mg/dL (0.70-1.30); Calcium 9.7 mg/dL (8.5-10.1); Chloride 101 mmol/L (98-107); Estimated GFR 91.88 (mL/min/1.73m2); Glucose 138 mg/dL (74-106); Potassium 3.5 mmol/L (3.5-5.1); Sodium 141 mmol/L (136-145); Total Protein 7.7 g/dL (6.4-8.2); Uric Acid 4.4 mg/dL (3.5-7.2)
[2023-06-07 13:00] LABS: C-Reactive Protein < 0.50 mg/dL (<or=0.5)
== END 2023-06-07 08:37 | disposition home or self-care (01) ==
LOC: LOS 08:36
PROVIDERS: PCP Family Medicine; Referring Provider Family Medicine; Visit Provider Family Medicine
DX: E11.9 Type 2 diabetes mellitus without complications (principal); I10 Essential (primary) hypertension; M79.18 Myalgia, other site; M25.431 Effusion, right wrist
CPT/HCPCS: 36415; 80053; 85027; 85652; 84550; 86140

== ENCOUNTER → 2023-07-05 18:55 | Outpatient (CLI) | payer MEDICARE, SELFPAY | PROVIDERS: PCP Family Medicine; Visit Provider Nurse Practitioner Family | DX: J44.1 Chronic obstructive pulmonary disease with (acute) exacerbation (principal); J18.1 Lobar pneumonia, unspecified organism; R91.8 Other nonspecific abnormal finding of lung field | CPT/HCPCS: 71046 ==

== ENCOUNTER → 2023-08-15 04:31 | Outpatient (CLI) | payer BC, SELFPAY ==
--- NOTE | 2023-08-15 06:30 | DI.RAD_ITS ---
Exam(s) XR CHEST 2V PA LATERAL EXAM: XR CHEST 2V PA LATERAL CLINICAL HISTORY: F/U ABNL CHEST XR,PNEUMONIA,J18.8. TECHNIQUE: 2D digital imaging was performed. COMPARISON: CR PORTABLE CHEST ONE VIEW from 09/25/2017 CR,XR XR CHEST 2V PA LATERAL from 07/05/2023 FINDINGS: 2 views: There has been significant improvement in the left lung infiltrate which has resolved. Left lung is presently clear. No pleural effusion. However, on the opposite-right side there is a small nodular infiltrate now evident in the mid-lower right lung, this measuring approximately 7 x 6 mm. There are no pleural effusions. Heart size is normal. The mediastinum is not widened. IMPRESSION: Resolution of left lung infiltrate but there is now a small nodular infiltrate in the mid right lung field as described above. There are no obvious pleural effusions. Continued follow-up recommended. DATA REPOSITORY: RADIATION DOSE DELIVERED:
--- NOTE | 2023-08-15 08:00 | DI.US_ITS ---
APPROVED REPORT EXAM: Comprehensive 2D, Doppler, and color-flow Echocardiogram Patient Location: Out-Patient [facility] Yarder: Zac Conrad RDCS (AE) Indications: SOB Conclusion Normal left ventricular wall thickness and chamber size. Ejection fraction is 60 to 65% with normal wall motion Normal right ventricular size and function Both atria are normal in size Aortic valve is mildly sclerotic probably trileaflet without stenosis or regurgitation Normal mitral valve with mild regurgitation Mildly dilated ascending aorta 3.67 cm Wall motion Left Ventricle The left ventricle is normal size. The left ventricular systolic function is normal. The left ventric ular ejection fraction is within the normal range. There is normal left ventricular wall thickness. T here is normal LV segmental wall motion. There is no ventricular septal defect visualized. LVEF is 60 -65%. Right Ventricle The right ventricle is normal size. The right ventricular systolic function is normal. Atria The left atrium size is normal. The right atrium size is normal. The interatrial septum is intact wit h no evidence for an atrial septal defect. Aortic Valve The Aortic valve is mildly sclerotic. Aortic valve is probably trileaflet. There is no aortic valvula r stenosis. No aortic regurgitation is present. Mitral Valve The mitral valve is normal in structure. No evidence of mitral valve stenosis. Mild mitral regurgitat ion. Tricuspid Valve The tricuspid valve is normal in structure. There is no tricuspid valve stenosis. Trace tricuspid reg urgitation. Unable to assess PA pressure. Pulmonic Valve The pulmonary valve is normal in structure. There is no pulmonic valvular stenosis. There is no pulmo carlene valvular regurgitation. Great Vessels The aortic root is normal in size. The ascending aorta is mildly dilated. Aortic arch is normal in ca liber. IVC is normal in size and collapses >50% with inspiration. Pericardium There is no pericardial effusion. 2D Dimensions IVSD d PLAX 0.97 cm M: 0.6-1.2 Ao Root d 3.39 cm M: 3.1 - 3.7 LVPW d PLAX 1.01 cm M: 0.6 - 1.2 Ao Asc Diam d 3.67 cm M: 2.6 - 3.4 LVID d PLAX 4.17 cm M: 4.2 - 5.8 LVDs 2.71 cm M: 2.5 - 4.0 LV EF Teichholz 64.7 % FS 35.03 % LV EDV (Teich) 77.4 mL LV ESV (Teich) 27.3 mL Stroke Vol Index (Teich) 24.55 M-Mode TAPSE 2.33 cm (M/F) >1.7 Auto EF LV EDV A4C 101.2 mL LV EDV A2C 121.6 mL LV EDV BP 110.3 mL LV ESV A4C 35.7 mL LV ESV A2C 44.5 mL LV ESV BP 39.8 mL LVEF(%) A4C 64.8 % LVEF(%) A2C 63.4 % LVEF(%) BP 63.9 % LV SV A4C 65.6 ml LV SV A2C 77.1 ml LV SV BP 70.5 ml LV CO A4C 4.5 L/min LV CO A2C 5.4 L/min LV CO BP 5.0 L/min HR A4C 69.23 BPM HR A2C 70.60 BPM LV EDV Index (BP) LA Volume LA Length A4C 5.4 cm LA Length A2C 5.5 cm LA Area A4C s 14.21 cm2 LA Area A2C s 17.62 cm2 LA Vol A4C A-L 31.92 mL LA Vol A2C A-L 48.31 mL LA Vol Biplane A-L 39.6 mL LA Vol/BSA A4C A-L LA Vol/BSA A2C A-L LA Vol/BSA BP A-L 19.4 mL/m2 LA Vol A4C MOD 30.4 mL LA Vol A2C MOD 46.2 mL LA Vol BP MOD 37.5 mL RA Volume RA Area A4C 8.9 cm2 RA ESV A4C (A-L) 14.0mL RA Vol/BSA A4C A-L RA Length A4C 4.8 cm RA ESV A4C (MOD) 14.1mL LV Diastology MV E' medial 0.071 (>0.07 m/s) MV E Vmax 0.82 (0.4-1.3 m/s) MV E/E' MED 11.42 (<14) MV A Vmax 1.00 (0.4-1.3 m/s) MV E' lateral 0.077 (>0.1 m/s) E/A Ratio 0.8 MV E/E' LAT 10.62 (<14) MV E' Average 0.074 m/s MV E/E'(average) 11.01 Aortic Valve AoV Vmax 1.34 m/s LVOT Vmax 0.94 m/s AoV Peak Grad 7.2 mmHg LVOT Peak Grad 3.6 mmHg AoV Area (Vmax) 2.37 cm2 LVOT VTI 0.217 m AoV VTI 0.308 m LVOT Mean Grad 2.2 mmHg AoV Mean Liam. 0.96 m/s LVOT SV 73.04 mL AoV Mean Grad 4.2 mmHg LVOT Diam s 2.05 cm AoV Area (VTI) 2.37 cm2 Velocity Ratio 0.70 Mitral Valve MV DT 203 (160-240 msec) Pulmonary Valve PV Vmax 1.26 (0.5-1.5 m/s) RVOT Vmax 0.70 m/s PV Peak Grad 6.3 mmHg RVOT Peak Gr. 1.9 mmHg PV Mean Liam 0.89 m/s RVOT VTI 0.157 m PV Mean Grad 3.5 mmHg RVOT Mean Gr. 1.1 mmHg
== END ==
PROVIDERS: PCP Family Medicine; Visit Provider Family Medicine
DX: I25.10 Atherosclerotic heart disease of native coronary artery without angina pectoris; J44.9 Chronic obstructive pulmonary disease, unspecified; R06.02 Shortness of breath; I34.0 Nonrheumatic mitral (valve) insufficiency
CPT/HCPCS: 71046; 93306

== ENCOUNTER → 2023-10-17 01:09 | Outpatient (CLI) | payer BC, SELFPAY ==
--- NOTE | 2023-10-17 07:34 | DI.RAD_ITS ---
Exam(s) XR CHEST 2V PA LATERAL EXAM: XR CHEST 2V PA LATERAL CLINICAL HISTORY: F/U ABNL CHEST XRAY,R93.89,NODULAR INFILTRATE TECHNIQUE: 2D digital imaging was performed of the chest. Two images were obtained. PA and lateral views were obtained. COMPARISON: CR PORTABLE CHEST ONE VIEW from 09/25/2017 CR XR CHEST 2V PA LATERAL from 08/15/2023 FINDINGS: MEDIASTINUM: Normal. HEART: Normal. PULMONARY VASCULATURE: Normal. LUNGS: The previously described nodule in the right mid lung is not visualized on the current examina tion. No focal infiltrates or nodules are present. The lungs are mildly hyperinflated with flattene d diaphragms suggesting underlying COPD. PLEURAL SPACE: No pleural effusion or pneumothorax. BONE:Within normal limits for the patient's age. OTHER FINDINGS:Normal. IMPRESSION: No acute pulmonary findings. DATA REPOSITORY: RADIATION DOSE DELIVERED:
== END ==
PROVIDERS: PCP Family Medicine; Visit Provider Family Medicine
DX: R93.89 Abnormal findings on diagnostic imaging of other specified body structures (principal)
CPT/HCPCS: 71046

== ENCOUNTER 2023-12-15 11:03 | Outpatient (CLI) | payer BC, SELFPAY ==
[2023-12-15 13:31] LABS: ALT 32 U/L (16-63); AST 24 U/L (15-37); Albumin 3.9 g/dL (3.4-5.0); Alkaline Phosphatase 105 U/L (46-116); Anion Gap 8.7 mmol/L (3-11); BUN 22 mg/dL (7-18); Bilirubin, Total 1.11 mg/dL (0.2-1.0); CO2 28.3 mmol/L (21.0-32.0); CREATININE 0.9 mg/dL (0.70-1.30); Calcium 9.2 mg/dL (8.5-10.1); Chloride 101 mmol/L (98-107); Estimated GFR 91.31 (mL/min/1.73m2); Glucose 141 mg/dL (74-106); Potassium 3.4 mmol/L (3.5-5.1); Sodium 138 mmol/L (136-145); TSH (W/Ref FT4) 1.12 uIU/mL (0.36-3.74); Total Protein 7.5 g/dL (6.4-8.2); Vitamin B12 430 pg/mL (193-986)
== END 2023-12-15 11:04 | disposition home or self-care (01) ==
LOC: LOS 11:03
PROVIDERS: PCP Family Medicine; Referring Provider Family Medicine; Visit Provider Family Medicine
DX: E03.9 Hypothyroidism, unspecified (principal); R41.3 Other amnesia; I10 Essential (primary) hypertension
CPT/HCPCS: 36415; 80053; 82607; 84443

== ENCOUNTER 2023-12-15 15:56 | Outpatient (REF) | payer BC, SELFPAY ==
[2023-12-15 13:16] LABS: COMMENT (LAB VIEW ONLY) 19.53 mg/dL; Microalb ug/mg Crea 17.4 ug/mg Cr
== END 2023-12-15 15:57 | disposition home or self-care (01) ==
LOC: LBN 15:56
PROVIDERS: PCP Family Medicine; Visit Provider Family Medicine
DX: E11.9 Type 2 diabetes mellitus without complications (principal)
CPT/HCPCS: 82043; 82570

== ENCOUNTER 2024-06-05 03:21 | Outpatient (CLI) | payer BC, SELFPAY ==
[2024-06-05] MEDS: Levalbuterol HFA 15 GM INH 4 PUFF IH (09:11)
[2024-06-05] MEDS: Inhaler, Assist Device 1 EACH MC (09:11)
--- NOTE | 2024-06-10 16:02 | W.PFT ---
Date of service: 06/05/24 Time of Service: 07:59 Pulmonary Function Test Result Indications: COPD Interpretation Spirometry: There is moderate airflow limitation. No significant bronchodilator response. Lung Volumes: Normal lung volumes Diffusion Capacity: Normal diffusion Airway Pressure: Normal airways resistance Impression Moderate airflow obstruction with a normal diffusion. Clinical Correlation therefore is recommended.
== END 2024-06-05 03:22 | disposition home or self-care (01) ==
LOC: RT 03:21
PROVIDERS: PCP Family Medicine; Visit Provider Student in an Organized Health Care Education/Training Program
DX: R06.02 Shortness of breath (principal); J44.9 Chronic obstructive pulmonary disease, unspecified
CPT/HCPCS: 94060; 94726; 94729

== ENCOUNTER 2024-11-08 09:38 | Outpatient (CLI) | payer MEDICARE, SELFPAY ==
[2024-11-08 13:32] LABS: ALT 31 U/L (16-63); AST 28 U/L (15-37); Albumin 4.0 g/dL (3.4-5.0); Alkaline Phosphatase 93 U/L (46-116); Anion Gap 11.6 mmol/L (3-11); BUN 12 mg/dL (7-18); Bilirubin, Total 1.2 mg/dL (0.2-1.0); CO2 31.4 mmol/L (21.0-32.0); Calcium 9.9 mg/dL (8.5-10.1); Calculated LDL 118 mg/dL (<100); Chloride 99 mmol/L (98-107); Cholesterol 203 mg/dL (<200); Estimated GFR 97.90 (mL/min/1.73m2); Glucose 97 mg/dL (74-106); HDL Cholesterol 61 mg/dL (>or=40); Potassium 3.2 mmol/L (3.5-5.1); Sodium 142 mmol/L (136-145); TSH (W/Ref FT4) 1.31 uIU/mL (0.36-3.74); Total Protein 7.6 g/dL (6.4-8.2); Triglyceride 120 mg/dL (<150); Vitamin B12 1531 pg/mL (193-986)
== END 2024-11-08 09:39 | disposition home or self-care (01) ==
LOC: LOS 09:38
PROVIDERS: PCP Family Medicine; Referring Provider Family Medicine; Visit Provider Family Medicine
DX: E53.8 Deficiency of other specified B group vitamins (principal); I10 Essential (primary) hypertension; E03.9 Hypothyroidism, unspecified
CPT/HCPCS: 36415; 80053; 80061; 82607; 84443